=== PATIENT | female | born 1980 | race Caucasian/White ===

== ENCOUNTER 2016-04-28 18:38 | Emergency (ER) | payer MEDICAID, OTHER ==
[~2016-04-28] VITALS: Ht 165.1 cm; Wt 76.0 kg
[~2016-04-28 18:38] MED LIST: PREN1TAB49
[2016-04-28 20:08] VITALS: Ht 165.1 cm; Wt 76.0 kg
[2016-04-28] MEDS ORDERED: HYDROCODONE/APAP (5/325) TAB PO ONE (21:00)
--- NOTE | 2016-04-28 21:19 | ERD ---
ER Documentation Chief Complaint Date/Time DATE: 04/28/16 TIME: 21:17 Chief Complaint while walking down the stairs at 0600 today heard right knee pop, painful (LORENZO VAUGHN PA-C) HPI 35-year-old female complains of right anterior knee pain while walking on the stairs this morning today at 6 AM, and she heard a popping noise. She states that it had gotten swollen, and complains of generalized right anterior knee pain, better with flexion, worse with extension, worse with weightbearing, better with ibuprofen however only a mild improvement. She denies weakness with this. (LORENZO VAUGHN PA-C) ROS All systems reviewed and are negative except as per history of present illness. (LORENZO VAUGHN PA-C) Medications Home Meds Active Scripts Hydrocodone/Acetaminophen (Foster 5-325 Tablet) 1 Each Tablet, 1 TAB PO Q6H Y for PAIN, #7 TAB Prov:LORENZO VAUGHN PA-C 04/28/16 Ibuprofen* (Motrin*) 600 Mg Tab, 600 MG PO Q6, #30 TAB Prov:LORENZO VAUGHN PA-C 04/28/16 Reported Medications Vits W-Ca,Fe,Fa(<1MG) () 1 Tab Tablet 09/13/10 Allergies Allergies: Coded Allergies: No Known Drug Allergy (Verified Allergy, Mild, 09/13/10) No Known Allergies (Unverified Allergy, Unknown, 12/20/10) PMhx/Soc History of Surgery: No Anesthesia Reaction: No Hx Neurological Disorder: No Hx Respiratory Disorders: No Hx Cardiac Disorders: No Hx Psychiatric Problems: No Hx Miscellaneous Medical Probl: No (DENIES MEDICAL AND SURGICAL HX.) Hx Alcohol Use: No Hx Substance Use: No Hx Tobacco Use: No Smoking Status: Never smoker (LORENZO VAUGHN PA-C) Physical Exam Vitals Vital Signs Date Time Temp Pulse Resp B/P Pulse Ox O2 Delivery O2 Flow Rate FiO2 04/28/16 20:08 98.2 106 20 125/79 98 (DEISY QUINTERO PA-C) Physical Exam General: Well-developed, well-nourished. The patient appears in no acute distress. HEENT: Head is normocephalic, atraumatic. No scleral icterus. Neck: Supple. Nontender. Lungs: Clear to auscultation. Normal air movement. Heart: Regular rate and rhythm. S1 and S2 are normal. No murmurs, gallops, or rubs. Abdomen: Nondistended. Lower Extremity - bilateral: Skin: No laceration, effusion appreciated Compartments: Soft Motor: Full active range of motion hip/knee/ankle/foot Sensation: Intact to light touch FDWS/MF/LF/P surfaces. Bones: Nontender pelvis/knee/proximal tibia/ malleoli/foot Joints: No effusion or laxity Pulses/Perfusion: 2+ DP, Capillary refill < 2 seconds Neurologic: Alert and oriented 3. No focal deficits. Normal speech and gait. Skin: Normal turgor. No rash or lesions. (LORENZO VAUGHN PA-C) Results 24 hrs Current Medications Medications (Trade) Dose Ordered Sig/Jose Route PRN Reason Start Time Stop Time Status Last Admin Dose Admin Acetaminophen/ Hydrocodone Bitart (Foster (5/325)) 1 tab ONCE ONCE PO 04/28/16 21:00 04/28/16 21:01 DC 04/28/16 21:08 (DEISY QUINTERO PA-C) Procedures/MDM ED course: She was offered pain medication, she received Foster given that ibuprofen has only given her mild improvement of pain. Patient's right lower extremity was placed in a knee immobilizer she was given crutches to be weightbearing as tolerated. Splint Assessment: Neurovascularly intact post splint placement with good fit. MDM: 35-year-old female complains of right anterior knee pain after walking downstairs, patient was placed in a knee immobilizer and given crutches for splint application. No evidence of any fracture, given her history of popping and swelling, there is a concern for ligamental injury and she was advised to follow-up with orthopedics. (LORENZO VAUGHN PA-C) 10:40PM: Patient was signed out to me by Lorenzo Vaughn PA-C, pending x-ray results. ED COURSE: The patient was stable throughout ED course. I kept the patient and/or family informed of laboratory and diagnostic imaging results throughout the ED course. DIAGNOSTIC IMAGING: Read by radiologist. DIAGNOSTIC IMAGING REPORT Patient: TRACI SIERRA : 1980 Age: 35 Sex: F MR #: [id number] DOS: 04/28/162056 Ordering MD: LORENZO VAUGHN PA-C [facility]: [facility] Room/Bed: PROCEDURE: XR Knee. CLINICAL INDICATION: Post traumatic right knee pain TECHNIQUE: AP, lateral and tunnel views of the right knee were obtained. COMPARISON: None. FINDINGS: No fracture or osseous lesion is identified. There is no evidence for dislocation. Mineralization is within normal limits. Joint spaces are preserved. No evidence of effusion or soft tissue swelling is identified. RPTAT:HJJR IMPRESSION: Unremarkable right knee series. Physician Elsa Date Time Electronically viewed and signed by Physician Elsa on 04/28/2016 22:21 JR/ CC: LORENZO VAUGHN PA-C I discussed the xray results with the patient. Patient understands that we are unable to rule out any ligamentous tendon injuries at this time. Patient should remain in knee immobilizer until further workup and management by grant specialist. Patient should remain nonweightbearing to the affected extremity. Patient is in agreement with this plan. DISCHARGE: At this time, patient is stable for discharge and outpatient management. I have instructed the patient to follow-up with his/her primary care physician in 1-2 days. I have discussed with the patient the possibility of needing to see a specialist for further workup and imaging studies if symptoms persist. I have instructed the patient to promptly return to the ER for any new or worsening symptoms including increased pain, fever, nausea, vomiting, weakness or LOC. The patient and/or family expressed understanding of and agreement with this plan. All questions were answered. Home care instructions were provided. (DEISY QUINTERO PA-C) Departure Diagnosis: Primary Impression: Knee pain Condition: Good LORENZO VAUGHN PA-C Apr 28, 2016 21:19 DEISY QUINTERO PA-C Apr 28, 2016 22:43
[2016-04-28] MEDS ORDERED: HYDR-906 PO (21:56)
[2016-04-28] MEDS ORDERED: IBUP-1542 PO (21:56)
--- NOTE | 2016-04-28 22:21 | RADRPT ---
PROCEDURE: XR Knee. CLINICAL INDICATION: Post traumatic right knee pain TECHNIQUE: AP, lateral and tunnel views of the right knee were obtained. COMPARISON: None. FINDINGS: No fracture or osseous lesion is identified. There is no evidence for dislocation. Mineralization is within normal limits. Joint spaces are preserved. No evidence of effusion or soft tissue swelli ng is identified. RPTAT:HJJR IMPRESSION: Unremarkable right knee series. Physician Elsa Date Time Electronically viewed and signed by Marques Naidu Physician on 04/28/2016 22:21 JR/
== END 2016-04-28 23:00 | disposition home or self-care (01) ==
LOC: FTE 18:38
DX: S89.91XA Unspecified injury of right lower leg, initial encounter (principal); X50.9XXA Other and unspecified overexertion or strenuous movements or postures, initial encounter; Y92.9 Unspecified place or not applicable
CPT/HCPCS: 29505; 73562; Z7502; Z7610

== ENCOUNTER 2017-01-18 17:18 | Emergency (ER) | payer OTHER ==
[~2017-01-18] VITALS: Ht 167.6 cm; Wt 79.5 kg
[~2017-01-18 17:18] MED LIST changes: +HYDR-906 PO; +IBUP-1542 PO
[2017-01-18 17:20] VITALS: Ht 167.6 cm; Wt 79.5 kg
[2017-01-18] MEDS ORDERED: IBUPROFEN 600 MG TAB PO ONE (18:00)
--- NOTE | 2017-01-18 18:04 | ERD ---
ER Documentation Chief Complaint Chief Complaint neck pain & rash x2 days, denies injury HPI 36-year-old female presents with anterior neck pain with swelling and describes slight pinkish colored rash on her neck and chest pain, breast fullness and abdominal pain that started 2 days ago. Pain is achy, diffuse, worse with movement and she has not tried anything for this. She has not had any fevers or chills, palpitations or dizziness. Denies upper respiratory infection symptoms. No trouble swallowing, no weakness, denies paresthesias. ROS All systems reviewed and are negative except as per history of present illness. Medications Home Meds Active Scripts Prednisone* (Prednisone*) 20 Mg Tab, 40 MG PO DAILY for 5 Days, TAB Prov:LORENZO VAUGHN PA-C 01/18/17 Ibuprofen* (Motrin*) 600 Mg Tab, 600 MG PO Q6, #30 TAB Prov:LORENZO VAUGHN PA-C 01/18/17 Hydrocodone/Acetaminophen (Downey 5-325 Tablet) 1 Each Tablet, 1 TAB PO Q6H Y for PAIN, #7 TAB Prov:LORENZO VAUGHN PA-C 04/28/16 Ibuprofen* (Motrin*) 600 Mg Tab, 600 MG PO Q6, #30 TAB Prov:LORENZO VAUGHN PA-C 04/28/16 Reported Medications Vits W-Ca,Fe,Fa(<1MG) () 1 Tab Tablet 09/13/10 Allergies Allergies: Coded Allergies: No Known Drug Allergy (Verified Allergy, Mild, 09/13/10) PMhx/Soc History of Surgery: No Anesthesia Reaction: No Hx Neurological Disorder: No Hx Respiratory Disorders: No Hx Cardiac Disorders: No Hx Psychiatric Problems: No Hx Miscellaneous Medical Probl: No (DENIES MEDICAL AND SURGICAL HX.) Hx Alcohol Use: No Hx Substance Use: No Hx Tobacco Use: No Physical Exam Vitals Vital Signs Date Time Temp Pulse Resp B/P Pulse Ox O2 Delivery O2 Flow Rate FiO2 01/18/17 17:20 98.3 90 20 153/87 100 Physical Exam General: Well-developed, well-nourished. The patient appears in no acute distress. HEENT: Head is normocephalic, atraumatic. No scleral icterus. Pupils are equal , round, and reactive. Oral mucous membranes are moist. No pharyngeal erythema. Neck: Supple. Thyroid is nontender, no masses, there is cervical lymphadenopathy. Lungs: Clear to auscultation. Normal air movement. Heart: Regular rate and rhythm. S1 and S2 are normal. No murmurs, gallops, or rubs. Abdomen: Soft, nontender, nondistended. Bowel sounds are normoactive. Extremities: No clubbing or cyanosis. Normal pulses. Moving extremities x 4. No weakness. Neurologic: Alert and oriented 3. No focal deficits. Skin: Normal turgor. No rash or lesions. Result Diagram: 01/18/17182401/18/171824 Results 24 hrs Laboratory Tests Test 01/18/17 18:25 White Blood Count 8.810^3/ul Red Blood Count 4.7710^6/ul Hemoglobin 13.1g/dl Hematocrit 39.2% Mean Corpuscular Volume 82.2fl Mean Corpuscular Hemoglobin 27.5pg Mean Corpuscular Hemoglobin Concent 33.4g/dl Red Cell Distribution Width 13.8% Platelet Count 31869^3/UL Mean Platelet Volume 9.9fl Neutrophils % 55.8% Lymphocytes % 34.5% Monocytes % 7.3% Eosinophils % 1.4% Basophils % 0.5% Nucleated Red Blood Cells % 0.0/100WBC Neutrophils # 4.910^3/ul Lymphocytes # 3.010^3/ul Monocytes # 0.610^3/ul Eosinophils # 0.110^3/ul Basophils # 0.010^3/ul Nucleated Red Blood Cells # 0.010^3/ul Sodium Level 144mmol/L Potassium Level 3.6mmol/L Chloride Level 103mmol/L Carbon Dioxide Level 30mmol/L Anion Gap 15 Blood Urea Nitrogen 10mg/dl Creatinine 0.72mg/dl Glucose Level 97mg/dl Calcium Level 9.5mg/dl Total Bilirubin 0.1mg/dl Direct Bilirubin 0.00mg/dl Indirect Bilirubin 0.1mg/dl Aspartate Amino Transf (AST/SGOT) 22IU/L Alanine Aminotransferase (ALT/SGPT) 36IU/L Alkaline Phosphatase 69IU/L Total Protein 7.4g/dl Albumin 4.7g/dl Globulin 2.70g/dl Albumin/Globulin Ratio 1.74 Lipase 75U/L Serum HCG, Qualitative NEGATIVE Current Medications Medications (Trade) Dose Ordered Sig/Jose Route PRN Reason Start Time Stop Time Status Last Admin Dose Admin Ibuprofen (Motrin) 600 mg ONCE ONCE PO 01/18/17 18:00 01/18/17 18:01 DC 01/18/17 18:43 DIAGNOSTIC IMAGING REPORT Patient: TRACI SIERRA : 1980 Age: 36 Sex: F MR #: [id number] DOS: 01/18/17 1800 Ordering MD: LORENZO VAUGHN PA-C Location: [facility] Room/Bed: PROCEDURE: XR Chest. CLINICAL INDICATION: Abdominal pain. TECHNIQUE: Single frontal view of the chest COMPARISON: None. FINDINGS: The cardiomediastinal silhouette is within normal limits. The lungs are clear. No signs of pleural fluid or pneumothorax are seen. The osseous structures and soft tissues are unremarkable. IMPRESSION: No evidence for active cardiopulmonary disease. RPTAT: [facility] Physician Verenice Date Time Electronically viewed and signed by Physician Verenice on 01/18/2017 18:48 RS/ CC: LORENZO VAUGHN PA-C Procedures/MDM 36 year old female comes in with neck pain since yesterday, she has a scant rash as well. There is some lymph node swelling that is likely reactive. I suspect her symptoms may be related to a mild reaction, a local allergic reaction. She has normal labs, normal electrolytes. Chest x-ray is also normal. No evidence of an abscess, meningitis, transverse myelitis, CVA, stroke, Brad angina. There is a scant erythematous rash on the neck, I suspect this is possibly from an allergy reaction with reactive lymph nodes. She was given ibuprofen in the emergency department with improvement of her symptoms, and will be discharged with ibuprofen, as well as prednisone. Departure Diagnosis: Primary Impression: Neck pain Condition: Good LORENZO VAUGHN PA-C Jan 18, 2017 18:04
[2017-01-18 18:32] LABS: BASOPHILS % 0.5 % (0.0-2.0); EOSINOPHILS # 0.1 10^3/ul (0.0-0.5); EOSINOPHILS % 1.4 % (0.0-7.0); HEMATOCRIT 39.2 % (37.0-47.0); HEMOGLOBIN 13.1 g/dl (12.0-16.0); LYMPHOCYTES % 34.5 % (15.0-51.0); MEAN CORPUSCULAR HEMOGLOBIN 27.5 pg (29.0-33.0); MEAN CORPUSCULAR HGB CONC 33.4 g/dl (32.0-37.0); MEAN CORPUSCULAR VOLUME 82.2 fl (82.0-101.0); MEAN PLATELET VOLUME 9.9 fl (7.4-10.4); MONOCYTE # 0.6 10^3/ul (0.3-0.9); MONOCYTES % 7.3 % (0.0-11.0); NEUTROPHIL # 4.9 10^3/ul (1.6-7.5); NEUTROPHILS % 55.8 % (39.0-77.0); PLATELET COUNT 271 10^3/UL (140-415); RED BLOOD COUNT 4.77 10^6/ul (4.20-5.40); RED CELL DISTRIBUTION WIDTH 13.8 % (11.5-14.5); WHITE BLOOD COUNT 8.8 10^3/ul (4.8-10.8)
--- NOTE | 2017-01-18 18:48 | RADRPT ---
PROCEDURE: XR Chest. CLINICAL INDICATION: Abdominal pain. TECHNIQUE: Single frontal view of the chest COMPARISON: None. FINDINGS: The cardiomediastinal silhouette is within normal limits. The lungs are clear. No signs of pleural f luid or pneumothorax are seen. The osseous structures and soft tissues are unremarkable. IMPRESSION: No evidence for active cardiopulmonary disease. RPTAT: [facility] Physician Verenice Date Time Electronically viewed and signed by Physician Verenice on 01/18/2017 18:48 RS/
[2017-01-18 18:56] LABS: ALBUMIN 4.7 g/dl (3.3-4.9); ALBUMIN/GLOBULIN RATIO 1.74; BILIRUBIN,INDIRECT 0.1 mg/dl (0-1.1); BILIRUBIN,TOTAL 0.1 mg/dl (0.2-1.3); CALCIUM 9.5 mg/dl (8.4-10.2); CREATININE 0.72 mg/dl (0.44-1.00); POTASSIUM 3.6 mmol/L (3.5-5.1); TOTAL PROTEIN 7.4 g/dl (6.1-8.1)
[2017-01-18] MEDS ORDERED: PRED20TA PO (19:11)
[2017-01-18] MEDS ORDERED: IBUP-1542 PO (19:11)
[2017-01-18 19:20] VITALS: BP 120/70; PULSE 77; RESP 18; TEMP 97.8
== END 2017-01-18 19:21 | disposition home or self-care (01) ==
LOC: FTE 17:18
DX: M54.2 Cervicalgia (principal); R07.9 Chest pain, unspecified
CPT/HCPCS: 36415; 71010; 80053; 83690; 84703; 85025; Z7502; Z7610

== ENCOUNTER 2017-10-01 15:22 | Emergency (ER) | END 2017-10-01 19:38 | disposition home or self-care (01) ==

== ENCOUNTER 2017-12-03 08:41 | Emergency (ER) | END 2017-12-03 10:42 | disposition home or self-care (01) ==

== ENCOUNTER 2018-11-04 14:02 | Emergency (ER) | payer OTHER ==
[~2018-11-04] VITALS: Ht 165.1 cm; Wt 73.9 kg
[~2018-11-04 14:02] MED LIST changes: +HYDR-4011 PO; -HYDR-906 PO; +NAPR-985 PO; +PRED20TA PO
[2018-11-04 14:14] VITALS: BP 137/82; PULSE 91; RESP 16; Ht 165.1 cm; Wt 73.9 kg
== END 2018-11-04 16:30 | disposition home or self-care (01) ==
LOC: FTE 14:02
DX: M54.2 Cervicalgia (principal)
CPT/HCPCS: Z7502; Z7610; 99282

== ENCOUNTER 2018-12-02 19:46 | Emergency (ER) | payer OTHER ==
[~2018-12-02] VITALS: Ht 162.6 cm; Wt 77.4 kg
[~2018-12-02 19:46] MED LIST changes: +MECL12.574 PO; +ONDA4TAB14 PO
[2018-12-02 19:59] VITALS: Ht 162.6 cm; Wt 77.4 kg
[2018-12-02] MEDS ORDERED: ACETAMINOPHEN 500 MG TAB PO STA (21:39)
[2018-12-02] MEDS ORDERED: ONDANSETRON 4 MG INJ IV STA (21:39)
[2018-12-02] MEDS ORDERED: SOD CHLORIDE 0.9% 1,000 ML IV STA (21:39)
[2018-12-02] MEDS ORDERED: MECLIZINE 12.5 MG TAB PO ONE (22:00)
[2018-12-02 23:09] VITALS: BP 119/73; PULSE 76; RESP 17
== END 2018-12-02 23:09 | disposition home or self-care (01) ==
LOC: FTE 19:46
DX: R42 Dizziness and giddiness (principal); R11.10 Vomiting, unspecified
CPT/HCPCS: 36415; 80053; 81001; 81025; 83690; 84484; 85025; 93005; 96374; J2405; J7030; Z7502; Z7610